=== PATIENT | male | born 1980 | race Two or more races ===

== ENCOUNTER → 2022-12-08 | Day surgery (SDC) | payer OTHER ==
[~2022-12-08] VITALS: Ht 182.9 cm; Wt 97.5 kg
[~2022-12-08] MED LIST: CIPROFLOXACIN 400MG/200ML 200 ML IV ONE; DexAMETHasone SOD PHOS 10MG/1ML VIAL INJ ONE; HYDROmorphone HCL 2 MG/ML VL/or syr IV PRN; METOCLOPRAMIDE HCL 5MG/ml INJ 2ml VIAL IV PRN; MIDAZOLAM HCL 2MG/2ML 2ml VIAL (1mg/ml) ONE; MORPHINE SULFATE INJ 2 MG/ml SYRG IV PRN; ONDANSETRON HCL 4 MG/2 ML VIAL IV ONE; PROPOFOL 10 MG/ML 20 ML IV ONE; SODIUM CHLORIDE LOCK 10 ML ONE; fentaNYL CITRATE 100 MCG/2 ML VL ONE
[2022-12-08 08:45] VITALS: BP 131/86
== END | disposition home or self-care (01) ==
LOC: SUR 06:43 → EEVIPCON 07:00
PROVIDERS: ATTEND Urology
DX: R97.20 Elevated prostate specific antigen [PSA] (principal); Z80.42 Family history of malignant neoplasm of prostate; J45.909 Unspecified asthma, uncomplicated
CPT/HCPCS: 55700; 88305; 88342; J0744; J1100; J2250; J2704; J3010; J2405

== ENCOUNTER → 2023-04-19 | Outpatient (CLI) | payer OTHER | END | disposition home or self-care (01) | LOC: EEVIPCON 09:00 → CT 09:33 | PROVIDERS: ATTEND Personal Emergency Response Attendant | DX: C61 Malignant neoplasm of prostate (principal) | CPT/HCPCS: 74176 ==